=== PATIENT | female | born 1995 | race Caucasian/White ===

== ENCOUNTER 2016-10-02 09:50 | Emergency (ER) | payer OTHER ==
[~2016-10-02] VITALS: Ht 162.6 cm; Wt 100.0 kg
[~2016-10-02 09:50] MED LIST: ACET500C5 PO; ALBU8.5H5 INH; CYCL-319 PO; D-ME118S6 PO; HYDR-3498 PO; IBUP-1542 PO; IBUP-727 PO; MECL12.574 PO; ONDA4TAB8 PO
[2016-10-02 09:53] VITALS: Ht 162.6 cm; Wt 100.0 kg
[2016-10-02] MEDS ORDERED: SODI126M NASAL (11:15)
[2016-10-02] MEDS ORDERED: IBUP-1542 PO (11:15)
--- NOTE | 2016-10-02 11:32 | ERD ---
ER Documentation Chief Complaint Date/Time DATE: 10/02/16 TIME: 11:18 Chief Complaint anxiety,felt numbness on neck, skaky, sob, visual changes HPI 21-year-old female complaining of sore throat and nasal congestion since this morning. Patient stated that 2 hours ago, sore throat has becoming worse, she is experiencing neck pain, blurry vision, shortness of breath and numbness around her lips and face. Patient states that the shortness of breath and numbness has resolved. But she still has blurry vision in the left eye, and sees a yellow tint over everything. She is normally cross side on the left, and can see without glasses with the left eye. Denies cough or runny nose. Denies fever. Denies shortness of breath at this time. Denies chest pain. ROS All systems reviewed and are negative except as per history of present illness. Medications Home Meds Active Scripts Sodium Chloride (Saline Nasal Mist) 126 Ml Mist, 2 SPRAY NASAL Q2H Y for NASAL CONGESTION, #1 BOTTLE Prov:LIZZY GARCIA NP 10/02/16 Ibuprofen* (Motrin*) 600 Mg Tab, 600 MG PO Q6H Y for PAIN AND OR ELEVATED TEMP, #30 TAB Prov:LIZZY GARCIA AUTOMOTIVE QUALITY MANAGER 10/02/16 Ondansetron Hcl* (Zofran*) 4 Mg Tablet, 4 MG PO Q6H for NAUSEA AND/OR VOMITING, #30 TAB Prov:LYNNE RODRIGUEZ 05/10/16 Ibuprofen* (Motrin*) 600 Mg Tab, 600 MG PO Q6, #30 TAB Prov:LYNNE RODRIGUEZ 05/10/16 Meclizine Hcl* (Antivert*) 12.5 Mg Tab, 12.5 MG PO Q6H Y for DIZZINESS, #20 TAB Prov:LYNNE RODRIGUEZ 05/10/16 Ibuprofen* (Motrin*) 600 Mg Tab, 600 MG PO Q6H Y for PAIN AND OR ELEVATED TEMP, #30 TAB Prov:TIFFANIE MARTINEZ NP 09/23/15 Cyclobenzaprine Hcl* (Cyclobenzaprine Hcl*) 10 Mg Tablet, 5 MG PO TID, #15 TAB Prov:TIFFANIE MARTINEZ NP 09/23/15 Hydrocodone Bit-Acetaminophen* (Kittitas*) 5-325 Mg Tab, 1 TAB PO Q6 Y for PAIN, # 20 TAB Prov:TIFFANIE MARTINEZ NP 09/23/15 Acetaminophen* (Tylophen*) 500 Mg Capsule, 1 CAP PO Q6H Y for PAIN AND OR ELEVATED TEMP, #20 CAP Prov:LYNNE RODRIGUEZ 04/29/15 Albuterol Sulfate* (Albuterol Sulfate* HFA) 8.5 Gm Hfa.aer.ad, 1-2 PUFF INH Q4 Y for SHORTNESS OF BREATH, #1 EA Prov:LYNNE RODRIGUEZ [place] 04/29/15 Dextromethorphan Hb-Promethazine Hcl (Promethazine DM Syrup) 180 Ml Syrup, 5 ML PO Q6H Y for COUGH, #4 OZ Prov:LYNNE RODRIGUEZ [place] 04/29/15 Reported Medications Ibuprofen (Motrin) 600 Mg Tablet, 600 MG PO Q6NARC Y 12/11/12 Allergies Allergies: Coded Allergies: No Known Allergy (Verified , 09/30/13) PMhx/Soc History of Surgery: Yes (LEFT HAND SURGERY) Anesthesia Reaction: No Hx Neurological Disorder: No Hx Respiratory Disorders: No Hx Cardiac Disorders: No Hx Psychiatric Problems: No Hx Miscellaneous Medical Probl: No Hx Alcohol Use: No Hx Substance Use: No Hx Tobacco Use: No Smoking Status: Never smoker Physical Exam Vitals Vital Signs Date Time Temp Pulse Resp B/P Pulse Ox O2 Delivery O2 Flow Rate FiO2 10/02/16 09:53 98.4 90 18 132/80 99 Physical Exam General: Well-developed, well-nourished, conscious and coherent, in no distress Skin: Warm and dry without rash, good texture and turgor Head: Normocephalic without evidence of trauma Eyes: Sclera and conjunctivae normal, nonicteric; pupils equal, round, and reactive to light; extraocular movements are intact. Strabismus noted on the left eye. Ears: Canals are patent. Tympanic membranes are clear Nose/Face: Nasal mucosa erythematous and swollen, without rhinorrhea Mouth/Throat: Mucous membranes are moist. Posterior pharynx mildly erythematous without exudates Neck: Supple without meningismus or adenopathy. Carotids are equal. Trachea midline. No bruits or JVD Chest: Normal AP diameter, good expansion without retractions. Nontender. Lungs are clear to auscultate bilaterally with good tidal volume Heart: Regular rate and rhythm. No murmur, rub, or gallop heard Abdomen: Soft and nontender without masses, guarding, or rebound. Bowel sounds are active. No hepatosplenomegaly Back: Without spinal or CVA tenderness Extremities: Full range of motion. Good strength bilaterally. No clubbing, cyanosis, or edema. Peripheral pulses are intact. Sensation intact Neuro: Alert and oriented. Mental status normal, speech clear. Cranial nerves grossly intact Procedures/MDM Well-appearing 21-year-old female presented ED with sore throat and nasal congestion. Patient is afebrile, in no respiratory distress. Lungs are clear to auscultate. I doubt that patient has pneumonia or bronchitis. Likely patient' s symptoms are result of viral upper respiratory infection. No sign of strep pharyngitis. Patient also appear to have a brief episode of anxiety attack, likely secondary to pain. Patient denies feeling anxious at this time. I do not feel anxiolytics is needed. Patient complaining of blurry vision and seeing a yellow tint. Her visual acuity on the left is 20/400 (checked by me), right 20/30, both without correction. Patient does have strabismus on the left eye, and is normally more blurry from the left eye. Is unsure this is something new. I will have her follow-up with her collections attorney. Patient appears well, stable for discharge and outpatient management. Medical decision making shared with patient and family. Education provided to patient and family. Patient and family expressed understanding of the plan. Medications on discharge: Ibuprofen, saline nasal spray. Follow-up: Primary care provider in 2-3 days or return to ED if worse. Departure Diagnosis: Primary Impression: URI (upper respiratory infection) URI type: acute nasopharyngitis (common cold) Qualified Code: J00 - Acute nasopharyngitis Additional Impressions: Strabismus Anxiety attack Condition: Good Patient Instructions: Adult Self-Care for Colds, Anxiety Reaction Referrals: COMM[facility] CLIN[facility] YOU HAVE RECEIVED A MEDICAL SCREENING EXAM AND THE RESULTS INDICATE THAT YOU DO NOT HAVE A CONDITION THAT REQUIRES URGENT TREATMENT IN THE EMERGENCY DEPARTMENT. FURTHER EVALUATION AND TREATMENT OF YOUR CONDITION CAN WAIT UNTIL YOU ARE SEEN IN YOUR DOCTORS OFFICE WITHIN THE NEXT 1-2 DAYS. IT IS YOUR RESPONSIBILITY TO MAKE AN APPOINTMENT FOR FOLOW-UP CARE. IF YOU HAVE A PRIMARY DOCTOR --you should call your primary doctor and schedule an appointment IF YOU DO NOT HAVE A PRIMARY DOCTOR YOU CAN CALL OUR PHYSICIAN REFERRAL HOTLINE AT IF YOU CAN NOT AFFORD TO SEE A PHYSICIAN YOU CAN CHOSE FROM THE FOLLOWING [facility] [address] [facility] [address] [facility] [address] [facility] [address] [facility] [facility] [address] [facility] [facility] [address] [facility] Hours: Mon - Fri 9:00 AM - 5:00 PM Additional Instructions: Call your primary care doctor TOMORROW for an appointment during the next 2-3 days.See the doctor sooner or return here if your condition worsens before your appointment time. Also follow up with your collections attorney. LIZZY GARCIA NP October 02, 2016 11:30
== END 2016-10-02 11:45 | disposition home or self-care (01) ==
LOC: FTE 09:50
DX: J00 Acute nasopharyngitis [common cold] (principal); H50.9 Unspecified strabismus; F41.1 Generalized anxiety disorder
CPT/HCPCS: 99283

== ENCOUNTER 2017-03-11 08:55 | Emergency (ER) | payer OTHER ==
[~2017-03-11] VITALS: Ht 175.3 cm; Wt 108.0 kg
[~2017-03-11 08:55] MED LIST changes: +SODI126M NASAL
[2017-03-11] MEDS ORDERED: IBUP-1542 PO (09:25)
[2017-03-11] MEDS ORDERED: CYCL-319 PO (09:25)
[2017-03-11] MEDS ORDERED: KETOROLAC 15 MG INJ IM STA (09:44)
[2017-03-11 09:45] VITALS: Ht 175.3 cm; Wt 108.0 kg
[2017-03-11] MEDS ORDERED: DIAZEPAM 5 MG TAB PO ONE (10:00)
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
== END 2017-03-11 10:01 | disposition home or self-care (01) ==
LOC: FTE 08:55
DX: M54.9 Dorsalgia, unspecified (principal); M54.2 Cervicalgia; M25.519 Pain in unspecified shoulder
CPT/HCPCS: 96372; J1885; Z7502; Z7610

== ENCOUNTER 2019-01-15 16:00 | Emergency (ER) | payer OTHER ==
[~2019-01-15] VITALS: Ht 175.3 cm; Wt 104.4 kg
[~2019-01-15 16:00] MED LIST changes: -CYCL-319 PO; +CYCL10TA7 PO; +ONDA4TAB14 PO
[2019-01-15 16:05] VITALS: Ht 175.3 cm; Wt 104.4 kg
[2019-01-15 20:05] VITALS: BP 116/75; PULSE 82; RESP 20
== END 2019-01-15 20:06 | disposition home or self-care (01) ==
LOC: FTE 16:00
DX: R11.2 Nausea with vomiting, unspecified (principal); R51 Headache; J45.909 Unspecified asthma, uncomplicated
CPT/HCPCS: 81003; 81025; Z7502; Z7610; 99283